=== PATIENT | female | born 1980 | race Caucasian/White ===

== ENCOUNTER 2017-12-15 06:00 | Day surgery (SDC) | payer BC ==
[2017-12-15] MEDS ORDERED: NS 0.9% 1000 ML* 1,000 ML IV ONE (06:30)
[2017-12-15] MEDS ORDERED: HYDROmorphone INJ* 2 MG/ML CARPUJECT SYRINGE IV SLOW PU ONE (06:30)
[2017-12-15] MEDS ORDERED: Metoclopramide IV* 5 MG/ML 2 ML VIAL IV ONE (06:30)
[2017-12-15 07:01] LABS: ABS Basophils 0.1 10^3/ul (0-0.2); ABS Eosinophils 0.2 10^3/ul (0-0.6); ABS Lymphocytes 1.4 10^3/ul (1.0-4.8); ABS Monocytes 0.8 10^3/ul (0-0.8); ABS Neutrophils 12.8 10^3/ul (1.5-7.7); ABS Nucleated RBC 0 10^3/ul; Eosinophil % 1.5 % (0-6); Hematocrit 41 % (35-47); Hemoglobin 14.2 g/dl (12.0-16.0); Lymphocyte % 9.1 % (25-47); Mean Corpuscular HGB Conc 34 g/dl (31-36); Mean Corpuscular Hemoglobin 31 pg (27-31); Mean Corpuscular Volume 90 fL (80-97); Mean Platelet Volume 10 um3 (7.4-10.4); Nucleated Red Blood Cells % 0.1; Platelet Count 242 10^3/ul (150-450); Red Blood Count 4.56 10^6/ul (4.0-5.4); Red Cell Distribution Width 13 % (10.5-15); White Blood Count 15.3 10^3/ul (3.5-10.8)
--- NOTE | 2017-12-15 07:05 | ED ---
Kike Powell Abhishek, scribed for Wilbur Hartman MD on 12/15/17 at 0635 . Abdominal Pain/Female - HPI Summary HPI Summary: The pt is a 37 y/o F presenting to the [facility] with a chief complaint of abd pain. The pt states the pain has worsened since 199912/14/17. The onset of the pain was a few days ago according to the pt. The pt also reports nausea, "swollen" abd and denies diarrhea. Pain radiates to the back. SHx includes occasional alcohol usage and pt denies PMHx of abd related surgeries. The last menstrual period was last week and the pt is stated to not be sexually active. The pain is reported to be 8/10 in severity initially. Pt also has a hx of Ulcers. - History of Current Complaint Chief Complaint: EDAbdPain Stated Complaint: ABD PAIN Hx Obtained From: Patient Hx Last Menstrual Period: 12/08/17 Onset/Duration: Gradual Onset, Lasting Days - past few days, Worse Since - 199912/16/17 Timing: Constant Severity Initially: Severe Severity Currently: Severe Pain Intensity: 8 Pain Scale Used: 0-10 Numeric Radiates: Yes Radiates to: Back Aggravating Factor(s): Nothing Alleviating Factor(s): Nothing Associated Signs and Symptoms: Positive: Nausea. Negative: Diarrhea Allergies/Adverse Reactions: Allergies Allergy/AdvReac Type Severity Reaction Status Date / Time No Known Allergies Allergy Verified 12/15/17 06:15 PMH/Surg Hx/FS Hx/Imm Hx GI History: Reports: Hx Ulcer Sensory History: Denies: Hx Legally Blind, Hx Vision Problem, Hx Deafness Opthamlomology History: Denies: Hx Legally Blind EENT History: Denies: Hx Deafness Infectious Disease History: No Infectious Disease History: Denies: Traveled Outside the [place] in Last 30 Days - Family History Known Family History: Positive: Diabetes Negative: Cardiac Disease - Social History Occupation: Employed Full-time Lives: Alone Alcohol Use: Occasionally Substance Use Type: Reports: Marijuana Smoking Status (MU): Current Every Day Smoker Type: Cigarettes Amount Used/How Often: 1/2 PPD Review of Systems Constitutional: Negative Eyes: Negative ENT: Negative Cardiovascular: Negative Respiratory: Negative Positive: Abdominal Pain, Nausea. Negative: Diarrhea Genitourinary: Negative Positive: Edema - "swollen" abd Skin: Negative Neurological: Negative Psychological: Normal All Other Systems Reviewed And Are Negative: Yes Physical Exam - Summary Physical Exam Summary: VITAL SIGNS: Reviewed. GENERAL: ~Patient is a well-developed and nourished (FEMALE) who is lying comfortable in the stretcher. Patient is not in any acute respiratory distress. HEAD AND FACE: No signs of trauma. No ecchymosis, hematomas or skull depressions. No sinus tenderness. EYES: PERRLA, EOMI x 2, No injected conjunctiva, no nystagmus. EARS: Hearing grossly intact. Ear canals and tympanic membranes are within normal limits. MOUTH: Oropharynx within normal limits. NECK: Supple, trachea is midline, no adenopathy, no JVD, no carotid bruit, no c- spine tenderness, neck with full ROM. CHEST: Symmetric, no tenderness at palpation LUNGS: Clear to auscultation bilaterally. No wheezing or crackles. CVS: Regular rate and rhythm, S1 and S2 present, no murmurs or gallops appreciated. ABDOMEN: Diffuse abd RLQ , Hypoactive bowel sounds EXTREMITIES: FROM in all major joints, no edema, no cyanosis or clubbing. NEURO: Alert and oriented x 3. No acute neurological deficits. Speech is normal and follows commands. SKIN: Dry and warm Triage Information Reviewed: Yes Vital Signs On Initial Exam: Initial Vitals Temp Pulse Resp BP Pulse Ox 97.9 F 95 16 98/50 100 12/15/17 06:05 12/15/17 06:05 12/15/17 06:05 12/15/17 06:05 12/15/17 06:05 Vital Signs Reviewed: Yes Diagnostics - Vital Signs Vital Signs Temp Pulse Resp BP Pulse Ox 12/15/17 06:05 97.9 F 95 16 98/50 100 - Laboratory Result Diagrams: 12/15/17 06:31 Lab Statement: Any lab studies that have been ordered have been reviewed, and results considered in the medical decision making process. Abdominal Pain Fem Course/Dx - Course Course Of Treatment: Pt is a 37 y/o F presenting to the [facility] with a chief complaint of abd pain. the abd is described as "swollen." The onset of the pain was a few days ago and the pain began to get worse since 12/14/17. Other symptoms reported were nausea. Pt denies diarrhea. The pt will be signed out to Dr. Alvarez awaiting CT A/P results and pending disposition. The dx will be abd pain. - Diagnoses Provider Diagnoses: Abdominal pain Discharge - Discharge Plan Condition: Stable Disposition: OTHER Discharge Disposition Comment: Pt is signed out to Dr. Alvarez awaiting disposition and CT A/P results Referrals: Ba Lara MD [Primary Care Provider] - The documentation as recorded by the Kike thornton Abhishek accurately reflects the service I personally performed and the decisions made by me, Wilbur Hartman MD.
[2017-12-15 07:10] LABS: Urine Appearance Cloudy; Urine Blood 1+ (Negative); Urine Color Yellow; Urine Ketones Trace (Negative); Urine Protein Negative (Negative); Urine Specific Gravity 1.023 (1.010-1.030); Urine Urobilinogen Negative (Negative)
[2017-12-15 07:13] LABS: INR 0.98 (0.77-1.02)
--- NOTE | 2017-12-15 07:55 | RAD ---
HISTORY: Abdominal pain COMPARISONS: August 02, 2016 VIEWS: 4: Frontal dual-energy and lateral views of the chest. FINDINGS: CARDIOMEDIASTINAL SILHOUETTE: The cardiomediastinal silhouette is normal. DARIO: The dario are normal. PLEURA: The costophrenic angles are sharp. No pleural abnormalities are noted. LUNG PARENCHYMA: The lungs are clear. ABDOMEN: The upper abdomen is clear. There is no subphrenic gas. BONES AND SOFT TISSUES: No bone or soft tissue abnormalities are noted. OTHER: None. IMPRESSION: NO ACTIVE CARDIOPULMONARY DISEASE.
--- NOTE | 2017-12-15 07:55 | RAD ---
HISTORY: Abdominal pain COMPARISONS: December 07, 2012 VIEWS: Frontal supine and upright views of the abdomen. FINDINGS: BOWEL: There is a nonobstructive bowel gas pattern. There is large amount of stool within the ascending and transverse colon. CALCULI: There are no abnormal calculi. BONES AND SOFT TISSUES: There are no osseous abnormalities. OTHER FINDINGS: The lung bases are clear. There is no subphrenic gas. IMPRESSION: NONOBSTRUCTIVE BOWEL GAS PATTERN.
[2017-12-15 07:58] LABS: EGFR Non-African American 83.9 (>60)
[2017-12-15] MEDS ORDERED: Iohexol 300* (CONTRAST) 10 ML SDV IV ONE (09:04)
--- NOTE | 2017-12-15 09:50 | RAD ---
INDICATION: Abdominal pain COMPARISON: Abdominal radiograph same date TECHNIQUE: Axial source images were obtained from the hemidiaphragms to the symphysis pubis following administration of oral and intravenous contrast. 91 mL Omnipaque 300 was utilized. Coronal and sagittal reconstructed images were acquired. Lung bases: The lung bases are clear. Liver: The liver is normal in size. There are no masses. There is no ductal dilatation. Gallbladder: There are no calcified gallstones. There is no evidence of wall thickening or pericholecystic fluid. Spleen: The spleen is normal in size. There are no masses. Pancreas: There is no focal pancreatic mass or ductal dilatation. Adrenal glands: There is no evidence of adrenal mass. Kidneys: The kidneys are normal in size and position. There are prompt nephrograms and there is prompt excretion bilaterally. There are no renal parenchymal masses. There is no evidence of nephrolithiasis. Adenopathy: There is no evidence of adenopathy by size criteria. Fluid collections: There is periappendiceal free fluid with mesenteric stranding in the periappendiceal region. There is a small amount of free fluid in the dependent portion of the pelvis.. Vessels:There are no significant atherosclerotic changes involving the aorta. There is no focal aneurysm. The iliac vessels are normal in caliber. The IVC appears normal. GI tract: The upper GI tract is unremarkable. The appendix is dilated and fluid-filled measuring approximately 1.2 cm in transverse dimension. There is periappendiceal inflammatory change. The CT findings are consistent with acute appendicitis. There are no findings of obstruction, perforation, or free intraperitoneal air. Pelvic organs: The uterus and adnexa appear normal Bladder: There are no bladder masses. Abdominal and pelvic soft tissues: The extraperitoneal abdominal and pelvic soft tissues appear normal.. Osseous structures: There are no acute osseous findings. Other: None IMPRESSION: CT FINDINGS OF ACUTE APPENDICITIS. FINDINGS CALLED TO ED
[2017-12-15] MEDS ORDERED: Morphine INJ* 4 MG/ML 1 ML SYRINGE (NEW SYRINGE VERSION) IV ONE (09:56)
[2017-12-15] MEDS ORDERED: Piperacillin/Tazobac ADVAN(*) 3.375 GM in NS 0.9% 100 ML* 100 ML IVPB SCH (10:00)
[2017-12-15] MEDS ORDERED: Ondansetron INJ* 2 MG/ML VIAL IV PRN (10:19)
[2017-12-15] MEDS ORDERED: HYDROmorphone INJ* 2 MG/ML CARPUJECT SYRINGE IV PRN (10:19)
[2017-12-15] MEDS ORDERED: Famotidine IV * 20 MG in NS 0.9% 100 ML* 100 ML IVPB ONE (10:22)
[2017-12-15] MEDS ORDERED: Famotidine IV* 10 MG/ML 2 ML (20 mg) IV ONE (10:25)
--- NOTE | 2017-12-15 11:13 | HP ---
DATE OF ADMISSION: 12/15/2017. ATTENDING SURGEON: Dr. Felipe Reyes* (dictated by SANGEETHA Balbuena). CHIEF COMPLAINT: Abdominal pain. HISTORY OF PRESENT ILLNESS: Viki is a pleasant, 37-year-old female who presented to the emergency room earlier today with complaints of 48 hours of worsening abdominal pain. She described her pain as being dull and achy with sharp episodes, measuring 10/10 in intensity. It started more generalized in the lower abdomen and gradually became more localized to the right lower quadrant. The pain is associated with some nausea, but denies any vomiting or changes in bowel habits. She also noticed some tactile fever last night, but no chills or night sweats. She had similar pains in the upper abdomen in the past related to history of peptic ulcer for which she has been maintained on Prilosec every day. She denies any black, tarry stools or bleeding per rectum. She was evaluated in the emergency room and her laboratory work up showed leukocytosis with a white count of 15,000. She also had a CT scan of the abdomen and pelvis that was consistent with acute appendicitis. Given her ongoing symptoms and the finding of the CT scan, we were asked to see the patient for further evaluation and discuss possible surgery. PAST MEDICAL HISTORY: Essentially unremarkable with the exception of a history of peptic ulcer disease. The patient has never had an upper endoscopy and has been feeling better using PPI on a daily basis. She denies any history of lung , liver, heart, or kidney disease. PAST SURGICAL HISTORY: None. CURRENT MEDICATIONS: Prilosec one tablet 20 mg daily. ALLERGIES: She has no known drug allergies. FAMILY HISTORY: Noncontributory. SOCIAL HISTORY: The patient is a current smoker who smokes three-quarters of a pack per day. She drinks alcohol rarely and denies illicit drug use. REVIEW OF SYSTEMS: She HPI, otherwise negative. She denies any headache, dizziness, blurred vision, or double vision. No chest pain, palpitations, shortness of breath, or wheezing. She denies any back pain, flank pain, dysuria , hematuria, or urinary frequency. She admits to abdominal pain in the right lower quadrant with associated nausea, but denies any vomiting, changes in bowel habits, melena, or bleeding per rectum. PHYSICAL EXAMINATION GENERAL: She is a pleasant, healthy-appearing, middle-aged female in no acute distress or discomfort at the time of admission. VITAL SIGNS: Temperature 100.8, pulse 86, blood pressure 95/51, O2 sat 95 percent on room air. HEENT: Head is normocephalic, atraumatic. Sclerae anicteric. PERRLA. EOM's intact. Oropharynx is dry. NECK: Supple, trachea midline. No cervical adenopathy or thyromegaly. LUNGS: Clear to auscultation bilaterally. HEART: Regular rate and rhythm. Normal S1 and S2 without rubs, murmurs, or gallops. BACK: Normal curvature, no CVA tenderness. BREASTS: Exam deferred at this time. ABDOMEN: Soft and nondistended. There is moderate suprapubic and right lower quadrant tenderness noted on light palpation. There is some guarding, but not rigidity or tympany. There is localized tenderness noted at McBurney's point with some rebound tenderness and guarding. There are no hernias, masses, or hepatosplenomegaly. Peng sign was negative. EXTREMITIES: Without cyanosis, clubbing, or edema. RECTAL: Exam deferred at this time. NEUROLOGIC: Grossly intact. LABORATORY WORK-UP: Her labs done earlier this morning revealed a white count of 15,000, hemoglobin of 14.2, hematocrit of 41, and platelets of 242. Her comprehensive metabolic panel was essentially all within normal limits, except for C-reactive protein high of 23.1. Her beta HCG quantitative was negative for . Her urine showed 1+ red cells and 1+ bacteria. ACCESSORY DIAGNOSTIC DATA: CT scan of the abdomen and pelvis revealed findings consistent with acute appendicitis. ASSESSMENT: Akpvyq-fytgm-abor-old female with signs and symptoms, as well as CT scan findings consistent with acute appendicitis. PLAN: We went on and discussed with the patient proceeding with a laparoscopic appendectomy. The rationale, indication, risks, and benefits of surgery were discussed with her today. Risks include, but not limited to infection, bleeding , or injury to adjacent structures. Her last p.o. intake was last night and she has been NPO since. We will cover her prophylactically with Zosyn at this time and maintain her on lactated ringer at 150 cc per hour. She appears to be stable and will be admitted for observation and likely to proceed with laparoscopic appendectomy this afternoon. We will follow her up accordingly. SANGEETHA BALBUENA [id number]/[facility] #: [id number] [facility] SYSTEMElina
[2017-12-15] MEDS ORDERED: Sodium Citrate/Citric Acid* 15 ML UDC PO ONE (13:05)
[2017-12-15] MEDS ORDERED: Buffered Lidocaine 0.9% SYRIN* 5 ML/SYR SYRINGE INTRADERM ONE (13:05)
[2017-12-15] MEDS ORDERED: Propofol* 10 MG/ML 20 ML BTL IV PUSH ONE (13:41)
[2017-12-15] MEDS ORDERED: fentaNYL* 50 MCG/ML 2 ML VIAL (100 MCG VIAL) ONE (13:41)
[2017-12-15] MEDS ORDERED: Lidocaine 2% PF * 5 ML VIAL ONE (13:41)
[2017-12-15] MEDS ORDERED: Bupivacaine 0.25% SDV* 30 ML ONE (13:41)
[2017-12-15] MEDS ORDERED: Mivacurium Chloride* 20 MG/10 ML VIAL IV ONE (13:42)
[2017-12-15] MEDS ORDERED: Dexamethasone IV* 4 MG/ML 1 ML (4 MG) ONE (13:49)
[2017-12-15] MEDS ORDERED: Sodium Citrate/Citric Acid* 15 ML UDC ONE (13:49)
--- NOTE | 2017-12-15 13:55 | HP ---
H&P (Free Text) History and Physical: Pt seen, interviewed, examined by me. She has H&P dictated by PA which I have reviewed along with CT. I agree with the assessment and plan is for laparoscopic appendectomy. I/R/B/A and option of no tx discussed with pt and parner. Recovery time and return to work discussed. Risks explained including , not ltd to: bleeding, infxn, pain, scars, blood clots, PNA, visceral injury, N /V, and risks of GETA. All ? answered and she agrees to proceed.
[2017-12-15] MEDS ORDERED: Succinylcholine* 20 MG/ML 10 ML VIAL ONE (14:08)
[2017-12-15] MEDS ORDERED: HYDROcodone/ACETAMIN 5-325 MG* 1 TAB PO PRN (14:37)
[2017-12-15] MEDS ORDERED: Naloxone* 0.4 MG/ML 1 ML VIAL IV PRN (14:37)
[2017-12-15] MEDS ORDERED: PROCHLORPERAZINE INJ 5 MG/ML 2 ML VIAL IV PRN (14:37)
[2017-12-15] MEDS ORDERED: fentaNYL* 50 MCG/ML 2 ML VIAL (100 MCG VIAL) IV PRN (14:37)
[2017-12-15] MEDS ORDERED: oxyCODONE/Acetamin 5/325 MG* TAB PO PRN ×2 (14:37→15:19)
[2017-12-15] MEDS ORDERED: Ketorolac INJ* 30 MG/ML 1 ML VIAL ONE (14:50)
[2017-12-15] MEDS ORDERED: Dexamethasone IV* 4 MG/ML 1 ML (4 MG) IV SLOW PU ONE (15:00)
--- NOTE | 2017-12-15 15:10 | OP ---
Operative Report - Blank - Operative Report Date of Operation: 12/15/17 Note: Preop Dx: Acute Appendicitis Postop Dx: Acute Appendicitis Procedure: Laparoscopic Appendectomy Anesthesia: Dr. Peng Surgeon: Dr. Brady Assist: Milton MAYORGA EBL: minimal Specimen: Appendix Fluids: 1000 ml LR Drains: none Findings: See dictated operative note
[2017-12-15] MEDS ORDERED: Ibuprofen TAB* 400 MG PO PRN (15:19)
[2017-12-15 17:10] VITALS: BP 99/49
--- NOTE | 2017-12-16 08:14 | ED ---
Yasir Powell Angela, scribed for Jorge Alvarez MD on 12/15/17 at 0712 . Progress - Progress Note Progress Note: This pt was signed out by Dr. Hartman, pending disposition, awaiting CT abdomen/ pelvis. Pt is a 37 y[facility]2 [facility], worsening last night. Pt states her pain is located across her lower abdomen, worse on the right side. Physical Exam: VITAL SIGNS: Reviewed. GENERAL: Patient is a well-developed and nourished female who is lying comfortable in the stretcher. Patient is not in any acute respiratory distress. HEAD AND FACE: Normocephalic and atraumatic. EYES: PERRLA, EOMI x 2, No injected conjunctiva. EARS: Hearing grossly intact. Ear canals and tympanic membranes are WNL. MOUTH: Oropharynx within normal limits. NECK: Supple, trachea is midline, no adenopathy, no JVD. CHEST: Symmetric, no tenderness at palpation LUNGS: Clear to auscultation bilaterally. No wheezing or crackles. CVS: RRR, S1 and S2 present, no murmurs or gallops appreciated. ABDOMEN: Soft. Right lower quadrant tenderness. No signs of distention. Positive bowel sounds. No rebound no guarding, and no masses palpated. No abdominal bruit or pulsations. EXTREMITIES: FROM in all major joints, no edema, no cyanosis or clubbing. NEURO: Alert and oriented x 3. No acute neurological deficits. Speech is normal. SKIN: Dry and warm CT abdomen/pelvis, as read by radiologist: IMPRESSION: CT findings of acute appendicitis. Chest XR, as ready by radiologist: IMPRESSION: No active cardiopulmonary disease. Abdomen XR, as ready by radiologist: IMPRESSION: Nonobstructive bowel gas pattern. Dr. Alvarez has reviewed these radiology reports. Pt was signed out by Dr. Hartman to follow up on the abd/pelv CT. Test results without any significant abnormalities except for WBC of 15.3. Urinalysis shows 1 + blood. CT abdomen/pelvis shows acute appendicitis. I discussed pt care with Dr. Reyes, surgeon, who has agreed to admit the pt. Pt will be admitted to [facility] surgery, in stable condition, with a diagnosis of acute appendicitis. Condition: Stable Disposition: Admit to [facility] Re-Evaluation - Re-Evaluation First Eval Re-Evaluation Time: 07:39 Change: Unchanged Comment: Pt reports she has had abd pain for a couple days, which worsened last night. She states it is worse on the right side. Second Eval Re-Evaluation Time: 09:55 Comment: I reviewed with the pt the admission plan to surgery. Course/Dx - Diagnoses Provider Diagnoses: Acute appendicitis - Provider Notifications Discussed Care Of Patient With: Felipe Reyes Time Discussed With Above Provider: 09:47 Instructed by Provider To: Other - I discussed pt care with Dr. Reyes, surgeon, who has agreed to admit the pt. The documentation as recorded by the Yasir thornton Angela accurately reflects the service I personally performed and the decisions made by me, Jorge Alvarez MD.
== END 2017-12-15 17:30 | disposition home or self-care (01) ==
LOC: ED 06:00 → OR 15:32
PROVIDERS: ATTEND Surgery
DX: K35.80 Unspecified acute appendicitis (principal); R11.0 Nausea; R10.30 Lower abdominal pain, unspecified; F17.210 Nicotine dependence, cigarettes, uncomplicated
CPT/HCPCS: 36415; 71046; 74019; 74177; 80053; 81003; 81015; 82150; 83605; 83690; 84702; 85025; 85610; 85730; 86140; 87086; 88304; 99284; A9270-GY; C1776; J0330; J1100; J1170; J1885; J2270; J2405; J2543; J2704; J2765; J3010; Q9967

== ENCOUNTER 2017-12-16 20:21 | Observation (INO) | payer BC ==
[2017-12-16] MEDS ORDERED: Acetaminophen TAB* 325 MG PO ONE (22:36)
[2017-12-16] MEDS ORDERED: Morphine INJ* 4 MG/ML 1 ML SYRINGE (NEW SYRINGE VERSION) IV ONE (22:37)
[2017-12-16] MEDS ORDERED: Piperacillin/Tazobac ADVAN(*) 3.375 GM in NS 0.9% 100 ML* 100 ML IVPB ONE (22:39)
[2017-12-16] MEDS ORDERED: Metoclopramide IV* 5 MG/ML 2 ML VIAL IV SLOW PU ONE (22:39)
[2017-12-16 23:11] LABS: ABS Basophils 0 10^3/ul (0-0.2); ABS Eosinophils 0 10^3/ul (0-0.6); ABS Lymphocytes 0.5 10^3/ul (1.0-4.8); ABS Monocytes 0.6 10^3/ul (0-0.8); ABS Nucleated RBC 0 10^3/ul; Eosinophil % 0 % (0-6); Hematocrit 32 % (35-47); Hemoglobin 10.9 g/dl (12.0-16.0); Lymphocyte % 5.3 % (25-47); Mean Corpuscular HGB Conc 34 g/dl (31-36); Mean Corpuscular Hemoglobin 31 pg (27-31); Mean Corpuscular Volume 91 fL (80-97); Mean Platelet Volume 10 um3 (7.4-10.4); Nucleated Red Blood Cells % 0; Platelet Count 152 10^3/ul (150-450); Red Blood Count 3.53 10^6/ul (4.0-5.4); Red Cell Distribution Width 14 % (10.5-15); White Blood Count 10.1 10^3/ul (3.5-10.8)
[2017-12-16 23:20] LABS: INR 1.17 (0.77-1.02)
[2017-12-16 23:28] LABS: EGFR Non-African American 87.8 (>60)
[2017-12-17 00:21] LABS: Urine Appearance Cloudy; Urine Blood Negative (Negative); Urine Color Amber; Urine Ketones 1+ (Negative); Urine Protein 1+(30 mg/dL) (Negative); Urine Urobilinogen Positive (Negative)
[2017-12-17] MEDS ORDERED: Iohexol 300* (CONTRAST) 10 ML SDV IV ONE (00:28)
[2017-12-17] MEDS ORDERED: Ibuprofen TAB* 600 MG PO PRN (02:45)
[2017-12-17] MEDS ORDERED: HYDROmorphone INJ* 2 MG/ML CARPUJECT SYRINGE IV PRN (02:45)
[2017-12-17] MEDS ORDERED: Acetaminophen TAB* 325 MG PO PRN (02:45)
[2017-12-17] MEDS ORDERED: Ondansetron INJ* 2 MG/ML VIAL IV PRN (02:45)
[2017-12-17] MEDS ORDERED: Piperacillin/Tazobactam VIAL*) 3.375 GM in NS 0.9% 100 ML* 100 ML IVPB SCH (04:00)
[2017-12-17] MEDS: NS 0.9% 1000 ML* 1,000 ML IV SCH (04:12)
[2017-12-17] MEDS: Piperacillin/Tazobactam 13.5 GM IV 24 hour continuous infusion IVPB SCH ×2 (04:17)
[2017-12-17] MEDS: oxyCODONE/Acetamin 5/325 MG* TAB PO PRN ×3 (04:21→22:34)
--- NOTE | 2017-12-17 05:05 | HP ---
CC: Dr. Ba Lara * HISTORY AND PHYSICAL: DATE OF ADMISSION: 12/17/17 CHIEF COMPLAINT: Abdominal pain, nausea, vomiting, and fever. HISTORY OF PRESENT ILLNESS: The patient is a 37-year-old female status post appendectomy. The afternoon of 12/15/17 through the evening of 12/16/17 had increasing nausea, vomiting, abdominal pain and then a fever to 102.5 at home. She came back to the emergency room for reevaluation. Please see the admission history and physical from yesterday for more details about past medical history and so forth. She did not have anything unusual to eat, has not been passing any blood or spitting up any blood. PHYSICAL EXAMINATION GENERAL: She is a well-developed, well-nourished female. She does not appear acutely ill. Skin is warm and well perfused. She is not diaphoretic. VITAL SIGNS: In the emergency room show fever of 100.8, blood pressure 92/42, pulse 74 and regular, respirations 18 and unlabored, O2 saturation 94%. LUNGS: Breathing is easy and unlabored. No abnormal sounds. ABDOMEN: Soft, flat. Mild diffuse tenderness. Not very impressive. No rebound or guarding. Incisions look good with no evidence of infection or drainage. DIAGNOSTIC STUDIES/LAB DATA: Laboratory studies show white blood count 10, 000. Differential with slight left shift and electrolytes are normal. C- reactive protein is 180. Liver chemistries are normal. Urinalysis has a few white blood cells, is leukocyte esterase negative, is a little concentrated. CT scan is obtained, which does not show anything ominous. It looks fairly typical for postoperative appendectomy. IMPRESSION AND PLAN: A 37-year-old female status post appendectomy, now with nausea, vomiting, and fever without evidence of intra-abdominal catastrophe. I have discussed with her and I think should be best served by coming in for observation. We will give her some intravenous hydration, IV antibiotics, and reassess later on, and she may be able to go home later today on some oral antibiotics. [id number]/[facility] #: [id number] [facility]
--- NOTE | 2017-12-17 07:20 | ED ---
Joselyn Powell Nilda, scribed for Wilbur Hartman MD on 12/16/17 at 2210 . Abdominal Pain/Female - HPI Summary HPI Summary: This patient is a 37 year old F accompanied by friend with a chief complaint of constant diffuse abd pain since yesterday. Yesterday pt was admitted for laproscopic appendectomy at 1400 and was D/C at 1700. Today pt has increasing pain, vomiting, and fever (102F at home). She denies BM since surgery, and abnormal urinary symptoms. The patient rates the pain 7/10 in severity. Symptoms aggravated by palpation, and alleviated by 2 ibuprofen taken SHRIMPER at 1900, and Percocet last taken this afternoon. - History of Current Complaint Chief Complaint: EDAbdPain Stated Complaint: FEVER/VOMITING Time Seen by Provider: 12/16/17 21:58 Hx Obtained From: Patient Hx Last Menstrual Period: 12/08/17 Onset/Duration: Sudden Onset, Lasting Days, Still Present Timing: Constant Severity Currently: Severe Pain Intensity: 7 Pain Scale Used: 0-10 Numeric Location: Diffuse Aggravating Factor(s): Other: - palpation Alleviating Factor(s): Other: - ibuprofen and percocet Associated Signs and Symptoms: Positive: Other: - diffuse abd pain, fever, vomiting; negative BM since surgery, and abnormal urinary symptoms. Allergies/Adverse Reactions: Allergies Allergy/AdvReac Type Severity Reaction Status Date / Time No Known Allergies Allergy Verified 12/15/17 13:01 PMH/Surg Hx/FS Hx/Imm Hx Endocrine/Hematology History: Denies: Hx Diabetes Cardiovascular History: Denies: Hx Hypertension GI History: Reports: Hx Ulcer, Other GI Disorders - APPY History: Denies: Hx Renal Disease Sensory History: Denies: Hx Legally Blind, Hx Vision Problem, Hx Deafness Opthamlomology History: Denies: Hx Legally Blind, Hx Vision Problem - Surgical History Surgery Procedure, Year, and Place[place] [facility] [place]ious Disease History: No Infectious Disease History: Denies: Traveled Outside the [place] in Last 30 Days - Family History Known Family History: Positive: Diabetes Negative: Cardiac Disease - Social History Alcohol Use: Occasionally Substance Use Type: Reports: Marijuana Smoking Status (MU): Current Every Day Smoker Type: Cigarettes Amount Used/How Often: 1/2 PPD Review of Systems Positive: Fever Positive: Abdominal Pain, Vomiting, Other - negative BM since surgery Positive: other - negative BM since surgery All Other Systems Reviewed And Are Negative: Yes Physical Exam - Summary Physical Exam Summary: VITAL SIGNS: Reviewed. GENERAL: Patient is a well-developed and nourished female who is lying comfortable in the stretcher. Patient is not in any acute respiratory distress. HEAD AND FACE: No signs of trauma. No ecchymosis, hematomas or skull depressions. No sinus tenderness. EYES: PERRLA, EOMI x 2, No injected conjunctiva, no nystagmus. EARS: Hearing grossly intact. Ear canals and tympanic membranes are within normal limits. MOUTH: Oropharynx within normal limits. NECK: Supple, trachea is midline, no adenopathy, no JVD, no carotid bruit, no c- spine tenderness, neck with full ROM. CHEST: Symmetric, no tenderness at palpation LUNGS: Clear to auscultation bilaterally. No wheezing or crackles. CVS: Regular rate and rhythm, S1 and S2 present, no murmurs or gallops appreciated. ABDOMEN: Soft, Diffusely tender abd. No signs of distention. No rebound no guarding, and no masses palpated. Bowel sounds are hyperactive. No inflammatory changes around laparoscopic ports. EXTREMITIES: FROM in all major joints, no edema, no cyanosis or clubbing. NEURO: Alert and oriented x 3. No acute neurological deficits. Speech is normal and follows commands. SKIN: Dry and warm Triage Information Reviewed: Yes Vital Signs On Initial Exam: Initial Vitals Temp Pulse Resp BP Pulse Ox 99.2 F 121 20 104/52 94 12/16/17 20:26 12/16/17 20:26 12/16/17 20:26 12/16/17 20:26 12/16/17 20:26 Vital Signs Reviewed: Yes Diagnostics - Vital Signs Vital Signs Temp Pulse Resp BP Pulse Ox 12/16/17 20:26 99.2 F 121 20 104/52 94 - Laboratory Result Diagrams: 12/16/17 23:00 12/16/17 23:00 Lab Statement: Any lab studies that have been ordered have been reviewed, and results considered in the medical decision making process. - CT Abd/Pel CT Interpretation Completed By: Radiologist - CT Abd/Pel, per radiologist, reveals appendectomy appearing since 12/15/17. Persisting small focal fluid lower left pelvis/posterior left cul-de-sac that appears very slightly encapsulated on current exam (this measures 2.3 x 1.9cm on axial image 78, for example), whereas it appeared more like free fluid on prior study. Advise follow-up to assess for developing abscess. Minimal nonspecific presacral edema appearing. No bowel obstruction, colitis, or free air. Unremarkable pancreas and kidneys. Top normal size gallbladder. 2.3 cm left ovarian follicle, similar to prior exam. 1.5 cm right ovarian follicle, slightly decreased since prior exam. Minimal intrahepatic biliary prominence versus trace periportal edema appearing since prior exam. Trace bilateral pleural effusions appearing. Dr. Hartman has reviewed this report. Abdominal Pain Fem Course/Dx - Course Course Of Treatment: Pt is a 37 y/o APPY done yesterday. She went home yesterday. Pt came in here with abd pain and fever. CT negative, but was only positive for post op changes. [0257] Pt was seen by Dr. Mclean (surgeon) and was admitted. - Diagnoses Provider Diagnoses: Abdominal pain - Provider Notifications Discussed Care Of Patient With: Earl Mclean - Surgery Time Discussed With Above Provider: 02:57 Instructed by Provider To: Admit As Inpatient Discharge - Discharge Plan Condition: Stable Disposition: ADMITTED TO [facility] The documentation as recorded by the Joselyn thornton Nilda accurately reflects the service I personally performed and the decisions made by , Wilbur Hartman MD.
--- NOTE | 2017-12-17 08:05 | RAD ---
INDICATION: Abdominal pain status post appendectomy one day ago. COMPARISON: Comparison is made with a prior CT of the abdomen and pelvis from December 15, 2017. TECHNIQUE: A CT scan of the abdomen and pelvis was performed with intravenous and oral contrast following intravenous injection of 91 ml of Omnipaque 300 nonionic contrast. Contiguous axial sections were obtained from the lung bases through the symphysis pubis. Images were reconstructed in the coronal and sagittal planes. FINDINGS: Images through the lung bases demonstrate mild dependent bilateral lower lobe infiltrates most consistent with atelectasis and trace bilateral pleural effusions. The liver and spleen are normal in size. There is trace periportal edema present within the liver. The gallbladder appears distended. No calcified gallstones are seen. The pancreas appears to be within normal limits. The kidneys and adrenal glands are normal in size. No hydronephrosis is seen. No significant focal renal abnormality is seen. The aorta is normal in caliber and demonstrates homogeneous contrast opacification. No significant enlarged retroperitoneal lymph nodes are seen. The stomach, small and large bowel appear nondistended. There are surgical sutures present in the right lower quadrant. There is slight increased density in the anterior wall of the cecum which may be related to contrast or postsurgical change. The wall is not thickened with out evidence for inflammatory change. The patient is status post recent appendectomy as noted above. No free intraperitoneal air is seen. There is a small amount of extraperitoneal air present in the anterior pelvis on the left side. There is a small amount of free intraperitoneal fluid mainly in the dependent portion of the pelvis with slightly more encapsulated fluid present posterior laterally on the left side measuring 2.2 x 2.7 cm in size. The uterus is anteverted and normal in size. There is an involuting follicular cyst present in the left ovary measuring 1.9 x 1.7 cm in size and a involuting follicular cyst within the right ovary measuring 1.5 x 1.3 cm in size. No significant focal osseous abnormality is seen. IMPRESSION: 1. SMALL DEPENDENT BILATERAL LOWER LOBE INFILTRATES AND TRACE BILATERAL PLEURAL EFFUSIONS. 2. STATUS POST APPENDECTOMY X1 DAY. 3. SMALL AMOUNT OF FREE INTRAPERITONEAL FLUID AND SMALL AREA OF MORE ENCAPSULATED FLUID PRESENT POSTERIORLY IN THE PELVIS ON THE LEFT SIDE. IT APPEARED MORE LIKE FREE FLUID ON THE PRIOR STUDY. RECOMMEND FOLLOW-UP TO EXCLUDE A DEVELOPING ABSCESS. 4. SMALL BILATERAL INVOLUTING OVARIAN FOLLICULAR CYSTS.
--- NOTE | 2017-12-17 08:53 | PN ---
Progress Note - Progress Note Date of Service: 12/17/17 Note: Surgery Progress: S: POD #2. Feels better this a.m. Has only req'd one Percocet for pain since admission. Tolerating sips of H2O, though states she gets nauseated if she drinks too quickly. She would like to try to advance diet, but is also a bit hesitant. She is passing flatus. No BM since surgery. Current Medications Acetaminophen (Tylenol Tab*) 650 mg PO Q4H PRN PRN Reason: Pain Or Temperature >101 F Hydromorphone HCl (Dilaudid Inj*) 0.5 mg IV Q1H PRN PRN Reason: Pain - severe Sodium Chloride (Ns 0.9% 1000 Ml*) 1,000 mls @ 100 mls/hr IV PER RATE [facility] Last Admin: 12/17/17 04:12 Dose: 100 mls/hr Piperacillin Sod/Tazobactam (Sod 13.5 gm/ Sodium Chloride) 500 mls @ 20.833 mls /hr IVPB Q24H [facility] Last Admin: 12/17/17 04:17 Dose: 20.833 mls/hr Ibuprofen (Motrin Tab*) 600 mg PO Q8H PRN PRN Reason: PAIN Ondansetron HCl (Zofran Inj*) 4 mg IV Q4H PRN PRN Reason: NAUSEA/VOMITING Oxycodone/Acetaminophen (Percocet 5/325 Tab*) 1 tab PO Q4H PRN PRN Reason: PAIN Last Admin: 12/17/17 04:21 Dose: 1 tab O: tmax 100.8 Vital Signs - 8 hr 12/17/17 12/17/17 12/17/17 01:01 02:00 02:30 Temperature Pulse Rate 88 75 74 Respiratory Rate Blood Pressure 90/45 92/42 (mmHg) O2 Sat by Pulse 98 95 94 Oximetry 12/17/17 12/17/17 12/17/17 03:18 04:05 04:21 Temperature 99.4 F 99.2 F Pulse Rate 81 87 Respiratory 16 20 18 Rate Blood Pressure 94/42 101/39 (mmHg) O2 Sat by Pulse 96 99 Oximetry 12/17/17 12/17/17 12/17/17 04:26 07:02 07:29 Temperature 98.9 F Pulse Rate 97 Respiratory 20 19 16 Rate Blood Pressure 98/46 (mmHg) O2 Sat by Pulse 96 Oximetry 12/17/17 08:00 Temperature Pulse Rate Respiratory 18 Rate Blood Pressure (mmHg) O2 Sat by Pulse Oximetry Intake and Output Last 24 Hours 12/15/17 12/16/17 12/17/17 12/18/17 06:59 06:59 06:59 06:59 Intake Total 200 Output Total 0 Balance 200 Weight 150 lb Intake: IV Fluids 100 NS (0.9%) 0 Oral 100 Output: Urine 0 Heart: reg Lungs: clear Abd: flat, nondistended; lap incision sites ok; soft; mild RLQ tenderness only; remainder soft, nontender Labs and CT report from 12/16 reviewed A: s/p lap appy 3 for acute nonruptured appendicitis, w/ fever and abd pain on POD #1, now improved; on Zosyn. P: to try diet; will d/w Dr. Brady; poss d/c later today on po abx
[2017-12-18] MEDS: NS 0.9% 1000 ML* 1,000 ML IV SCH (01:57)
[2017-12-18] MEDS: Piperacillin/Tazobactam 13.5 GM IV 24 hour continuous infusion IVPB SCH ×2 (04:05)
[2017-12-18 07:42] VITALS: BP 99/59
[2017-12-18] MEDS: oxyCODONE/Acetamin 5/325 MG* TAB PO PRN (07:47)
--- NOTE | 2017-12-18 15:09 | DS ---
CC: Ba Lara MD * DISCHARGE SUMMARY: DATE OF ADMISSION: 12/17/17. DATE OF DISCHARGE: 12/18/17. DISCHARGE DIAGNOSES: 1. Abdominal pain. 2. Fever. 3. Nausea and vomiting, status post laparoscopic appendectomy. HOSPITAL COURSE: The patient is a 37-year-old female, status post laparoscopic appendectomy performed on 12/16/17, who was discharged from the recovery room post surgery. She developed fever, nausea, vomiting, and was seen in the emergency room in the vocational counselor of 12/17 and she was admitted to the surgical floor for observation. She had CBC demonstrating normal WBCs of 10.1. Chemistries were notable for CRP elevated at 180. She had a CT scan of the abdomen and pelvis that demonstrated postsurgical changes with no evidence of collection. There was some small amount of free intraperitoneal fluid with an area of "more encapsulated fluid" present posterior in the pelvis on the left. She also small bilateral involuting ovarian follicular cysts. The patient was admitted to the surgical floor where she received intravenous fluid, intravenous antibiotics and over the following 24 hours she progressed in her diet. Her T-max was 100. Her pain was controlled with oral medications. She was ambulating and able to tolerate liquids without vomiting. The patient was assessed on 12/18/17 and felt to be stable discharge home. She was prescribed Augmentin 875 mg b.i.d. and instructed to return for followup in the [facility] office 3 to 5 days from discharge. Diet and activity instructions were reviewed as well. Pending tests included blood cultures drawn on the 12/16/17. Preliminary results were in growth at day #1. [id number]/[facility] #: [id number] [facility]
== END 2017-12-18 11:05 | disposition home or self-care (01) ==
LOC: ED 20:21 → SSU 12-17 02:45
PROVIDERS: ADMIT Surgery; ATTEND Surgery
DX: R10.9 Unspecified abdominal pain (principal); R50.9 Fever, unspecified; R11.2 Nausea with vomiting, unspecified; Z98.890 Other specified postprocedural states; J90 Pleural effusion, not elsewhere classified
CPT/HCPCS: 36415; 74177; 80053; 81003; 81015; 82150; 83605; 83690; 83735; 85025; 85610; 85730; 86140; 87040; 87086; 96365; 96375; 99284; A9270-GY; G0378; J2270; J2405; J2543; J2765; Q9967

== ENCOUNTER 2018-09-02 11:07 | Emergency (ER) | payer BC ==
[2018-09-02 11:31] VITALS: BP 96/62
--- NOTE | 2018-09-02 12:06 | UC ---
Dental HPI - HPI Summary HPI Summary: 38-year-old female presents with one-week history of right upper dental and jaw pain. States approximately one week ago her dose of Effexor was increased by her primary care provider and she started noticing that she was clenching and grinding her teeth with this increase. She spoke to her PCP and they have decreased her dose back to her original about 2 days ago but the pain continued to worsen. She was evaluated in the ER last night and was felt to have muscle spasms and was provided with a prescription for a muscle relaxant which she has not yet picked up. She states that the pain is starting to localize more to the right upper molars and is more of a throbbing pain similar to dental infection she's had in the past. States she did have some mild facial swelling yesterday. Denies fever, chills, trismus, dysphagia, sore throat, chest pain, or difficulty breathing. Does not have dentist appointment at present. Has appointment with PCP in 1 week. - History of Current Complaint Chief Complaint: UCDentalProblem Stated Complaint: DENTAL COMPLAINT Time Seen by Provider: 09/02/18 11:43 Hx Obtained From: Patient Hx Last Menstrual Period: 12/08/17 Onset/Duration: Gradual Onset, Lasting Days Severity: Severe Pain Intensity: 9 Aggravating Factor(s): Chewing Alleviating Factor(s): Nothing Related History: Swelling - Allergies/Home Medications Allergies/Adverse Reactions: Allergies Allergy/AdvReac Type Severity Reaction Status Date / Time No Known Allergies Allergy Verified 09/02/18 11:31 Home Medications: Home Medications Diazepam TAB(NF) [Valium TAB(NF)] 2 mg PO ONCE 09/02/18 [History Confirmed 09/02] Morphine Sulfate/Pf [Morphine 1 mg/2 ml Syringe] 1 mg IV 09/02/18 [History] PMH/Surg Hx/FS Hx/Imm Hx Previously Healthy: Yes Psychological History: Depression - Surgical History Surgical History: Yes [place], Year, [place] [facility] [place] Family History Known Family History: Positive: Diabetes Negative: Cardiac Disease - Social History Occupation: Employed Full-time Lives: With Family Alcohol Use: Occasionally Substance Use Type: Marijuana Substance Use Comment - Amount & Last Used: weekly Smoking Status (MU): Light Every Day Tobacco Smoker Type: Cigarettes Amount Used/How Often: 1/2 PPD - Immunization History Most Recent Influenza Vaccination: never Most Recent Pneumonia Vaccination: never Review of Systems All Other Systems Reviewed And Are Negative: Yes Constitutional: Negative: Fever, Chills Skin: Negative: Rash ENT: Positive: Dental Pain. Negative: Sore Throat, Ear Ache, Nasal Discharge, Sinus Congestion, Sinus Pain/Tenderness Respiratory: Negative: Shortness Of Breath, Cough Cardiovascular: Negative: Palpitations, Chest Pain Gastrointestinal: Negative: Abdominal Pain, Vomiting, Nausea Is Patient Immunocompromised?: No Physical Exam Triage Information Reviewed: Yes Appearance: Well-Appearing, No Pain Distress, Well-Nourished Vital Signs: Initial Vital Signs Temp 98.4 F 09/02/18 11:27 Pulse 84 09/02/18 11:27 Resp 18 09/02/18 11:27 BP 96/62 09/02/18 11:27 Pulse Ox 100 09/02/18 11:27 Vital Signs Reviewed: Yes Eyes: Positive: Conjunctiva Clear. Negative: Discharge ENT: Positive: TMs normal, Dental tenderness - right upper molar, Uvula midline. Negative: Pharyngeal erythema, Nasal congestion, Nasal drainage, Tonsillar swelling, Tonsillar exudate, Trismus, Muffled voice, Sinus tenderness Dental: Negative: Gross Decay/Caries @, Dental Fracture @, Abscess @ Neck: Positive: Supple, Nontender, No Lymphadenopathy Respiratory: Positive: Lungs clear, Normal breath sounds, No respiratory distress Cardiovascular: Positive: RRR, No Murmur, Pulses Normal, Brisk Capillary Refill Abdomen Description: Positive: Nontender, No Organomegaly, Soft. Negative: Distended, Guarding Bowel Sounds: Positive: Present Neurological: Positive: Alert Skin Exam: Normal Dental Complaint Course/Dx - Course Course Of Treatment: 38-year-old female presents with one-week history of right upper dental and jaw pain. States approximately one week ago her dose of Effexor was increased by her primary care provider and she started noticing that she was clenching and grinding her teeth with this increase. She spoke to her PCP and they have decreased her dose back to her original about 2 days ago but the pain continued to worsen. She was evaluated in the ER last night and was felt to have muscle spasms and was provided with a prescription for a muscle relaxant which she has not yet picked up. She states that the pain is starting to localize more to the right upper molars and is more of a throbbing pain similar to dental infection she's had in the past. States she did have some mild facial swelling yesterday. Based on history and localization of dental pain will treat with 10 day course of amoxicillin. Will have her use naproxen BID for pain management. She is to schedule an appointment with dentist at next available. She has appointment with PCP in week. Warning symptoms reviewed. Verbalizes understanding and agrees with POC. - Differential Dx/Diagnosis Differential Diagnosis/Dx: Dental Abscess, Odontogenic Pain, Peridontic Disease , TMJ Syndrome Provider Diagnoses: Dental pain Discharge - Sign-Out/Discharge Documenting (check all that apply): Patient Departure All imaging exams completed and their final reports reviewed: No Studies - Discharge Plan Condition: Stable Disposition: HOME Prescriptions: Amoxicillin PO (*) [Amoxicillin 500 MG CAP*] 500 mg PO Q12H #20 cap Naproxen [Naproxen 500 mg tab] 500 mg PO Q12HR #30 tablet Patient Education Materials: Toothache (ED) Referrals: Ba Lara MD [Primary Care Provider] - If Needed Additional Instructions: We will start you on an antibiotic to treat for a dental infection. Start amoxicillin 500 mg twice a day for 10 days. Take naproxen 500 mg 1 tab every 12 hours for pain. Do not take any other non- steroidal pain medications such as ibuprofen or aspirin while taking this medication. You may take acetaminophen (Tylenol) according to directions if you need additional pain medication. Use salt water rinses after every meal and at bedtime to help remove any debris and encourage any drainage. Make an appointment with the dentist at next available appointment. Follow up with your primary care provider as needed. Seek immediate medical attention in the emergency room if you develop fever greater than 100.5 F, have pain not relieved with pain medication, are unable to swallow, have difficulty breathing, or any worsening of symptoms. - Billing Disposition and Condition Condition: STABLE Disposition: Home
== END 2018-09-02 12:15 | disposition home or self-care (01) ==
LOC: UCEAST 11:07
DX: R52 Pain, unspecified (principal); K08.89 Other specified disorders of teeth and supporting structures; F32.9 Major depressive disorder, single episode, unspecified; F17.210 Nicotine dependence, cigarettes, uncomplicated
CPT/HCPCS: 99212; G0463

== ENCOUNTER 2019-12-04 10:46 | Emergency (ER) | payer BC ==
[2019-12-04] MEDS ORDERED: LORazepam TAB(*) 1 MG PO ONE (10:54)
--- NOTE | 2019-12-04 11:03 | ED ---
Psychiatric Complaint - HPI Summary HPI Summary: The patient is a 39-year-old female arriving via ambulance to [facility] emergency department with chief complaint of anxiety attack beginning around 0530 this morning with paresthesias and numbness of various parts of the body since 09. She reports that she woke up this morning and began to have a sensation of out of body experiencesurreal experience. A few hours later, she began to have numbness and tingling of the hands, legs worse on right, and face. While her symptoms have improved, there is still tingling present in the lips, right leg, right arm, and right hand with tensing of the muscles. She is not in any pain. She states a history of depression and anxiety, and when she has anxiety attacks , she occasionally experiences hyperventilation. She notes that she is unsure if she took her Effexor last night, but she usually does not miss a dose, and when she does miss a dose, she doesnt normally have these issues. She has been seeing a therapist since May 2019, but she has been medication for about two years. She denies any suicidal or homicidal ideations at this time. Current light smoker, occasional alcohol use, marijuana use. Medications reviewed. Allergies noted. Home Medications Medication Instructions Recorded Confirmed Type Venlafaxine CAP (NF) [Effexor CAP 75 mg PO DAILY 12/04/19 12/04/19 History (NF)] Venlafaxine ER (NF) [Effexor ER 150 mg PO DAILY 12/04/19 12/04/19 History (NF)] - History Of Current Complaint Time Seen by Provider: 12/04/19 10:50 Hx Obtained From: Patient Hx Last Menstrual Period: 12/08/17 Onset/Duration: Sudden Onset, Lasting Hours, Still Present Timing: Constant Severity Initially: Moderate Severity Currently: Mild Character: Anxious Aggravating Factor(s): Nothing Alleviating Factor(s): Nothing Related History: Positive For: Prior Psychiatric Issues - anxiety, depression Has Suicidal: Denies: Thoughts Has Homicidal: Denies: Thoughts - Allergies/Home Medications Allergies/Adverse Reactions: Allergies Allergy/AdvReac Type Severity Reaction Status Date / Time No Known Allergies Allergy Verified 12/04/19 10:57 Home Medications: Home Medications Venlafaxine CAP (NF) [Effexor CAP (NF)] 75 mg PO DAILY 12/04/19 [History Confirmed 12/04/19] Venlafaxine ER (NF) [Effexor ER (NF)] 150 mg PO DAILY 12/04/19 [History Confirmed 12/04/19] PMH/Surg Hx/FS Hx/Imm Hx Endocrine/Hematology History: Denies: Hx Diabetes Cardiovascular History: Denies: Hx Hypertension GI History: Reports: Hx Ulcer, Other GI Disorders - APPY History: Denies: Hx Renal Disease Sensory History: Denies: Hx Contacts or Glasses, Hx Legally Blind, Hx Vision Problem, Hx Deafness, Hx Hearing Aid Opthamlomology History: Denies: Hx Contacts or Glasses, Hx Legally Blind, Hx Vision Problem Psychiatric History: Reports: Hx Anxiety, Hx Depression - Surgical History Surgical History: Yes Surgery Procedure, Year, and Place: APPY [address] [place] [address] Infectious Disease History: No Infectious Disease History: Denies: Traveled Outside the [place] in Last 30 Days - Family History Known Family History: Positive: Diabetes Negative: Cardiac Disease - Social History Alcohol Use: Occasionally Hx Substance Use: Yes Substance Use Type: Reports: Marijuana Substance Use Comment - Amount & Last Used: weekly Hx Tobacco Use: Yes Smoking Status (MU): Light Every Day Tobacco Smoker Type: Cigarettes Amount Used/How Often: 1/2 PPD Review of Systems Positive: Paresthesia - extremities, face, Numbness - extremities Positive: Anxious All Other Systems Reviewed And Are Negative: Yes Physical Exam - Summary Physical Exam Summary: Appearance: The patient is well-nourished in no acute distress and in no acute pain. Skin: The skin is warm and dry, and skin color reflects adequate perfusion. HEENT: The head is normocephalic and atraumatic. The pupils are equal and reactive. The conjunctivae are clear and without drainage. Nares are patent and without drainage. Mouth reveals moist mucous membranes, and the throat is without erythema and exudate. The external ears are intact. The ear canals are patent and without drainage. The tympanic membranes are intact. Neck: The neck is supple with full range of motion and non-tender. There are no carotid bruits. There is no neck vein distension. Respiratory: Chest is non-tender. Lungs are clear to auscultation and breath sounds are symmetrical and equal. Cardiovascular: Heart is regular rate and rhythm. There is no murmur or rub auscultated. There is no peripheral edema and pulses are symmetrical and equal. Abdomen: The abdomen is soft and non-tender. There are normal bowel sounds heard in all four quadrants and there is no organomegaly palpated. Musculoskeletal: There is no back tenderness noted. Extremities are non-tender with full range of motion. There is carpal spasm of both hands worse in the right. There is good capillary refill. There is no peripheral edema or calf tenderness elicited. Neurological: Patient is alert and oriented to person, place and time. The patient has symmetrical motor strength in all four extremities. Cranial nerves are grossly intact. Deep tendon reflexes are symmetrical and equal in all four extremities. Psychiatric: The patient is anxious-appearing. Triage Information Reviewed: Yes Vital Signs On Initial Exam: Initial Vitals Temp Pulse Resp BP Pulse Ox 97.4 F 73 16 136/61 100 12/04/19 10:47 12/04/19 10:47 12/04/19 10:47 12/04/19 10:47 12/04/19 10:47 Vital Signs Reviewed: Yes Procedures - Sedation Patient Received Moderate/Deep Sedation with Procedure: No Diagnostics - Vital Signs Vital Signs Temp Pulse Resp BP Pulse Ox 12/04/19 10:47 97.4 F 73 16 136/61 100 - Laboratory Lab Statement: Any lab studies that have been ordered have been reviewed, and results considered in the medical decision making process. Re-Evaluation - Re-Evaluation First Eval Re-Evaluation Time: 12:30 Change: Improved Comment: She is feeling less anxious. We discussed all results and plan for discharge with PCP follow up. Patient agreeable with plan. Course/Dx - Course Course Of Treatment: Ms. Flores came in complaining of tingling and spasm in her bilateral hands but much worse on the right and the right arm bilateral lower extremities and circumferential of her lips. She was given half a milligram of by mouth Ativan which made her feel completely better. I recommended against using a benzodiazepine routinely but rather following up with her PCP to consider her medications and also working with her psychiatric providers around the current situations with this. She understood that this was a hyperventilation syndrome. - Differential Dx/Clinical Impression Provider Diagnosis: Hyperventilation, Anxiety Discharge ED - Sign-Out/Discharge Documenting (check all that apply): Patient Departure - Patient will be discharged home. - Discharge Plan Condition: Good Disposition: HOME Patient Education Materials: Hyperventilation (ED), Anxiety (ED) Referrals: Ba Lara MD [Primary Care Provider] - 3 Days Additional Instructions: Follow up with your primary care provider in 2-3 days. Return to the emergency department for any new or worsening symptoms. - Billing Disposition and Condition Condition: GOOD Disposition: Home - Attestation Statements Document Initiated by Jose Gibalden: Yes Documenting Scribe: Puja Cintron Provider For Whom Jose Gibalden is Documenting (Include Credential): Dr. Wili Rose MD Scribe Attestation: Puja Powell scribed for Dr. Wili Rose MD on 12/04/19 at 1623. Scribe Documentation Reviewed: Yes Provider Attestation: The documentation as recorded by the Puja thornton accurately reflects the service I personally performed and the decisions made by me, Dr. Wili Rose MD Status of Scribe Document: Viewed
[2019-12-04 12:50] VITALS: BP 115/48
== END 2019-12-21 08:08 | disposition home or self-care (01) ==
LOC: ED 10:46
DX: R06.4 Hyperventilation (principal); F41.9 Anxiety disorder, unspecified; F32.9 Major depressive disorder, single episode, unspecified; F17.210 Nicotine dependence, cigarettes, uncomplicated
CPT/HCPCS: 99283; A9270-GY